=== PATIENT | female | born 1960 | race African-American/Black ===

== ENCOUNTER → 2020-01-21 | Day surgery (SDC) | payer OTHER ==
[2020-01-19 13:14] LABS: BASOPHILS % 0.5 % (0.0-1.0); EOSINOPHILS # (AUTO) 0.2 (0.0-0.4); EOSINOPHILS % 4.9 % (0.0-6.0); HEMATOCRIT 44.6 % (34.2-44.1); HEMOGLOBIN 14.5 g/dL (12.0-16.0); LYMPHOCYTES # (AUTO) 1.9 (1.0-3.2); MEAN CORPUSCULAR HEMOGLOBIN 30.4 pg (28-32); MEAN CORPUSCULAR HGB CONC 32.5 g/dL (31-35); MEAN CORPUSCULAR VOLUME 93.5 fL (81-99); MONOCYTES # (AUTO) 0.3 (0.2-0.8); MONOCYTES % 6.5 % (4.4-11.3); NEUTROPHILS # (AUTO) 1.5 (2.1-6.9); NEUTROPHILS % 37.8 % (38.7-80.0); PLATELET COUNT 248 x10e3/uL (140-360); RED BLOOD COUNT 4.77 x10e6/uL (3.6-5.1); RED CELL DISTRIBUTION WIDTH 13.5 % (11.7-14.4)
[~2020-01-21] MED LIST: GABAPENTIN300 MG PO; HYDROXYCHLOROQ200 MG PO; HYOSCYAMINE 0.125 MG TAB ONE; LEVOTHYROXINE50 MCG PO; PROPOFOL IV EMULSION 10 MG/ML 20 ML VIAL ONE; PROPOFOL IV EMULSION 10 MG/ML 50 ML VIAL ONE; REMERON45 M1 PO
--- OUTSIDE RECORDS SUMMARY | 2020-01-21 13:01 | XMS REPORT ---
Author Author [facility] Address Unknown Phone Unavailable Care Team Providers Care Manager English Name Role Phone UNKNOWN, REFFERING PP Unavailable DIONE ZAZUETA Unavailable Unavailable Payers Payer Name Policy Type Policy Number Effective Date Expiration Date Problems This patient has no known problems. Allergies, Adverse Reactions, Alerts Allergy Name Allergy Type Status Severity Reaction(s) Onset Date Inactive Date Treating Clinician Comments No Known Allergies DA Active U 2018-10-20 00:00:00 Medications This patient has no known medications. Encounters Start Date/Time End Date/Time Encounter Type Admission Type Attending Clinicians Care Facility Care Department Encounter ID 2000-09-24 00:00:00 Inpatient [facility] [id number] 2018-09-28 00:00:00 2018-09-28 00:00:00 Outpatient [facility] [id number] 2018-06-17 00:00:00 2018-06-17 00:00:00 Outpatient [facility] [id number] 2018-05-06 13:16:13 2018-05-06 13:16:13 Outpatient [facility] [id number] 2018-04-20 00:00:00 2018-04-20 00:00:00 Outpatient [facility] [id number] 2018-04-20 00:00:00 2018-04-20 00:00:00 Outpatient [facility] [id number] 2018-03-23 11:08:50 2018-03-23 11:08:50 Outpatient [facility] [id number] 2018-03-10 00:00:00 2018-03-10 00:00:00 Outpatient [facility] [id number] 2017-10-26 00:00:00 2017-10-26 00:00:00 Outpatient [facility] [id number] 2017-09-30 22:13:00 2017-09-30 22:13:00 Emergency [facility] [id number] 2017-08-13 00:00:00 2017-08-13 00:00:00 Outpatient [facility] [id number] 2017-07-28 00:00:00 2017-07-28 00:00:00 Outpatient [facility] [id number] 2017-07-23 00:00:00 2017-07-23 00:00:00 Outpatient [facility] [id number] 2017-07-22 00:00:00 2017-07-22 00:00:00 Outpatient [facility] [id number] 2017-07-21 00:00:00 2017-07-21 00:00:00 Outpatient [facility] [id number] 2017-07-14 00:00:00 2017-07-14 00:00:00 Outpatient [facility] [id number] 2017-06-15 08:10:12 2017-06-15 08:10:12 Outpatient [facility] [id number] 2017-06-11 08:53:30 2017-06-11 08:53:30 Outpatient [facility] [id number] 2017-05-28 00:00:00 2017-05-28 00:00:00 Outpatient [facility] [id number] 2017-05-27 00:00:00 2017-05-27 00:00:00 Outpatient [facility] [id number] 2017-05-27 00:00:00 2017-05-27 00:00:00 Outpatient [facility] [id number] 2017-05-25 00:00:00 2017-05-25 00:00:00 Outpatient [facility] [id number] 2017-05-21 00:00:00 2017-05-21 00:00:00 Outpatient [facility] [id number] 2017-05-20 00:00:00 2017-05-20 00:00:00 Outpatient [facility] [id number] 2017-05-18 00:00:00 2017-05-18 00:00:00 Outpatient [facility] [id number] 2017-05-11 10:12:17 2017-05-11 10:12:17 Outpatient [facility] [id number] 2017-05-07 00:00:00 2017-05-07 00:00:00 Outpatient [facility] [id number] 2017-04-27 13:17:43 2017-04-27 13:17:43 Outpatient [facility] [id number] 2017-04-22 15:49:38 2017-04-22 15:49:38 Outpatient [facility] [id number] 2017-04-08 11:37:20 2017-04-08 11:37:20 Outpatient [facility] [id number] 2017-04-07 00:00:00 2017-04-07 00:00:00 Outpatient [facility] [id number] 2017-03-19 11:29:08 2017-03-19 11:29:08 Outpatient [facility] [id number] 2017-03-13 13:02:36 2017-03-13 13:02:36 Outpatient [facility] [id number] 2017-02-19 10:54:15 2017-02-19 10:54:15 Outpatient [facility] [id number] 2017-02-11 09:55:27 2017-02-11 09:55:27 Outpatient [facility] [id number] 2017-01-30 13:31:06 2017-01-30 13:31:06 Outpatient [facility] [id number] 2017-01-29 07:01:00 2017-01-29 07:01:00 Outpatient [facility] [id number] 2017-01-26 09:55:05 2017-01-26 09:55:05 Outpatient [facility] [id number] 2017-01-26 00:00:00 2017-01-26 00:00:00 Outpatient [facility] [id number] 2017-01-23 08:28:13 2017-01-23 08:28:13 Outpatient [facility] [id number] 2017-01-22 09:45:25 2017-01-22 09:45:25 Outpatient [facility] [id number] 2017-01-20 10:37:28 2017-01-20 10:37:28 Outpatient [facility] [id number] Results Test Description Test Time Test Comments Text Results Atomic Results Result Comments XR Chest 2 Views 2018-08-08 14:36:31 Patient: ZAYNAB CARPENTER Date/Time08/08/2018 14:24 CDTReason for ExamEvaluate for TB (Tuberculosis)[id number]: XR Chest 2 ViewsHISTORY: Evaluate for TB (Tuberculosis)COMPARISON: NoneFINDINGS:Midline tracheostomy is present.The lungs are clear. No pleural effusion or pneumothorax. The cardiac silhouette is within normal limits. No acute osseous abnormalities.IMPRESSION:No acute cardiopulmonary disease. Final Dictated by: MD Francesco, Hillary DT/TM: 08/08/2018 2:36 pmSigned by: MD Francesco, Quin (Electronic Signature): 08/08/2018 2:36 pm TROPONIN I 2018-06-22 15:41:00 TROPONIN I (BEAKER) (test qton=035) < ng/mL 0.00-0.03 Effective 10/19/2017: Reference Range ChangeNew: 0.00-0.03 ng/mL (Previous: 0 .00-0.15 ng/mL)Reason for change: Updated to reflect the current testing platfo rmTroponin I (TnI) levels must be interpreted in the context of the presenting s ymptoms and the clinical findings. Elevated TnI levels indicate myocardial bowen ge, but are not specific for ischemic heart disease. Elevated TnI levels are se en in patients with other cardiac conditions (including myocarditis and congesti ve heart failure), and slight TnI elevations occur in patients with other condit ions, including sepsis, renal failure, acidosis, acute neurological disease, and persistent tachyarrythmia.B-TYPE NATRIURETIC FACTOR (BNP)2018-06-22 15:39:00* Test Item Value Reference Range Comments B-TYPE NATRIURETIC PEPTIDE (BEAKER) (test mjih=937) 36 pg/mL 0-100 Indication: Evaluation of CHF in this patient with Difficulty BreathingLIPASE 2018-06-22 15:36:00* Test Item Value Reference Range Comments LIPASE (BEAKER) (test omyp=638) 9 U/L 6-51 COMPREHENSIVE METABOLIC [id number] 15:36:00* Test Item Value Reference Range Comments TOTAL PROTEIN (BEAKER) (test dfud=387) 7.5 gm/dL 6.0-8.5 Specimen slightly hemolyzed ALBUMIN (BEAKER) (test hniq=0684) 4.0 g/dL 3.5-5.0 Specimen slightly hemolyzed ALKALINE PHOSPHATASE (BEAKER) (test mtii=995) 60 U/L 30-115 BILIRUBIN TOTAL (BEAKER) (test ucsp=325) 0.4 mg/dL 0.1-1.2 Specimen slightly hemolyzed SODIUM (BEAKER) (test pgrp=871) 139 meq/L 135-148 POTASSIUM (BEAKER) (test wmhe=612) 3.9 meq/L 3.6-5.5 Specimen slightly hemolyzed CHLORIDE (BEAKER) (test zdns=498) 108 meq/L 98-106 CO2 (BEAKER) (test dlxi=966) 22 meq/L 20-29 BLOOD UREA NITROGEN (BEAKER) (test btwf=534) 10 mg/dL 10-26 CREATININE (BEAKER) (test lkjz=548) 0.76 mg/dL 0.50-1.20 Specimen slightly hemolyzed GLUCOSE RANDOM (BEAKER) (test lqhe=854) 83 mg/dL 70-110 CALCIUM (BEAKER) (test bmha=189) 9.6 mg/dL 8.5-10.5 AST (SGOT) (BEAKER) (test rplb=756) 11 U/L 5-40 Specimen slightly hemolyzed ALT (SGPT) (BEAKER) (test pknr=506) 6 U/L 5-50 Specimen slightly hemolyzed EGFR (BEAKER) (test ibnj=2947) 95 mL/min/1.73 sq m INSUFFICIENT CLINICAL DATA TO CALCULATE ESTIMATED GFR. CBC W/PLT COUNT & AUTO [id number] 15:17:00* Test Item Value Reference Range Comments WHITE BLOOD CELL COUNT (BEAKER) (test ffqz=478) 9.4 K/ L 4.0-10.0 RED BLOOD CELL COUNT (BEAKER) (test smrs=644) 4.56 M/ L 4.00-5.00 HEMOGLOBIN (BEAKER) (test ycrf=392) 13.7 GM/DL 12.0-15.0 HEMATOCRIT (BEAKER) (test yuru=667) 40.2 % 36.0-45.0 MEAN CORPUSCULAR VOLUME (BEAKER) (test lfkc=676) 88.2 fL 82.0-99.0 MEAN CORPUSCULAR HEMOGLOBIN (BEAKER) (test lnqt=820) 30.0 pg 27.0-33.0 MEAN CORPUSCULAR HEMOGLOBIN CONC (BEAKER) (test mlpi=497) 34.1 GM/DL 32.0-36.0 RED CELL DISTRIBUTION WIDTH (BEAKER) (test nxby=270) 14.3 % 10.3-14.2 PLATELET COUNT (BEAKER) (test eole=223) 221 K/CU MM 150-430 MEAN PLATELET VOLUME (BEAKER) (test icyt=324) 8.7 fL 6.5-10.5 NUCLEATED RED BLOOD CELLS (BEAKER) (test lseu=380) 0 /100 WBC 0-0 NEUTROPHILS RELATIVE PERCENT (BEAKER) (test mjgs=928) 77 % LYMPHOCYTES RELATIVE PERCENT (BEAKER) (test xsyi=322) 18 % MONOCYTES RELATIVE PERCENT (BEAKER) (test sbeo=051) 3 % EOSINOPHILS RELATIVE PERCENT (BEAKER) (test ctmc=537) 2 % BASOPHILS RELATIVE PERCENT (BEAKER) (test ucjv=526) 0 % NEUTROPHILS ABSOLUTE COUNT (BEAKER) (test maym=689) 7.21 K/ L 1.80-8.00 LYMPHOCYTES ABSOLUTE COUNT (BEAKER) (test xusu=604) 1.65 K/ L 1.48-4.50 MONOCYTES ABSOLUTE COUNT (BEAKER) (test snra=837) 0.32 K/ L 0.00-1.30 EOSINOPHILS ABSOLUTE COUNT (BEAKER) (test wphi=861) 0.22 K/ L 0.00-0.50 BASOPHILS ABSOLUTE COUNT (BEAKER) (test vvlo=930) 0.02 K/ L 0.00-0.20 RAD, CHEST, 1 VIEW, NON [id number] 14:50:00Reason for exam:->LEG PAINIs the patient ?->UnknownShould this be performed at the bedside?->NoFINAL REPORT CLINICAL HISTORY: LEG PAIN TECHNIQUE: 1 view of the chest. COMPARISON: None IMPRESSION: There is a midline tracheostomy tube. There are slightly prominent reticulonodular interstitial opacities in the right upper lobe. There is no other lobar consolidation. There are no pleural effu sions. The cardiomediastinal silhouette is within normal limits for size. Clinic al correlation is requested, with chest CT if warranted. Signed: Eron Sanderson Verified Date/Time: 06/22/2018 14:50:49 Reading Location: [address] Consult Reading Room Electronically signed by: ERON SANDERSON M.D. on 05/2018 02:50 PM
[2020-01-21 20:18] LABS: WBC,FECAL (FECAL LACTOFERRIN) NEGATIVE (NEGATIVE)
--- NOTE | 2020-01-21 20:58 | Operative Report ---
DATE OF PROCEDURE: 01/21/2020 SURGEON: Kelvin Melgar MD PROCEDURE: Colonoscopy with polypectomy. INDICATIONS FOR COLONOSCOPY: Colorectal cancer screening, mother with colon cancer, personal history of colon polyps, diarrhea. MEDICATIONS: The patient was done under MAC, please see anesthesiologist's note. PROCEDURE IN DETAIL: With the patient in the left lateral decubitus position, a flexible fiberoptic Olympus colonoscope was inserted into the rectum with ease and advanced all the way to the cecum. Prep overall was suboptimal to poor with [id number] amount of retained fecal material in the colon. The scope was then withdrawn slowly. Mucosa overlying the cecum grossly appeared to be within normal limits. Two polyps were hot snared from the ascending colon. Two polyps were hot snared from the transverse colon. Five polyps were hot biopsied from the descending colon. Six polyps were hot biopsied from the sigmoid colon. Three polyps were hot biopsied from the rectum. The scope was then retroflexed into the distal rectum and small internal hemorrhoids were noted, none of which was actively bleeding. The scope was then straightened out, it was subsequently withdrawn, and the patient tolerated the procedure well. IMPRESSION: 1. Suboptimal to poor prep. 2. Ascending colon polyps x2, hot snared. 3. Transverse colon polyps x2, hot snared. 4. Descending colon polyps x5, hot biopsied. 5. Sigmoid colon polyps x6, hot biopsied. 6. Rectal polyp x3, hot biopsied. 7. Internal hemorrhoids, none actively bleeding. PLAN: Follow up histology. The patient will need a repeat colonoscopy after a better prep. Kelvin Melgar MD [facility] [place] /[id number] cc: Alan Summers MD
[2020-01-22 14:39] LABS: C DIFFICILE TOXIN A&B AMP PROB **POSITIVE** (NEGATIVE)
== END | disposition home or self-care (01) ==
LOC: OR 12:59
PROVIDERS: ATTEND Internal Medicine Gastroenterology
DX: K59.09 Other constipation (principal); D12.2 Benign neoplasm of ascending colon; K62.1 Rectal polyp; K64.8 Other hemorrhoids; M32.9 Systemic lupus erythematosus, unspecified; E03.9 Hypothyroidism, unspecified; J44.9 Chronic obstructive pulmonary disease, unspecified; R03.0 Elevated blood-pressure reading, without diagnosis of hypertension; F31.9 Bipolar disorder, unspecified; F41.9 Anxiety disorder, unspecified; Z01.810 Encounter for preprocedural cardiovascular examination; Z01.812 Encounter for preprocedural laboratory examination; Z86.11 Personal history of tuberculosis; Z80.0 Family history of malignant neoplasm of digestive organs
CPT/HCPCS: 36415; 45384; 45385; 83630; 83993; 85025; 87045; 87177; 87328; 87493; 93005; J2704 ×2; 45378